=== PATIENT | female | born 1970 | race Caucasian/White ===

== ENCOUNTER 2023-03-21 06:04 | Day surgery (SDC) | payer OTHER ==
[~2023-03-21] VITALS: Ht 154.9 cm; Wt 59.0 kg
[2023-03-21 07:23] LABS: BASOPHILS # (AUTO) 0.1 K/uL (0.00-0.22); BASOPHILS % (AUTO) 1.3 % (0.0-2.0); EOSINOPHILS # (AUTO) 0.1 K/uL (0-0.4); EOSINOPHILS % (AUTO) 2.6 % (0.0-4.0); HEMATOCRIT 37.2 % (36-48); HEMOGLOBIN 12.6 g/dL (12.0-16.0); LYMPHOCYTES # (AUTO) 1.9 K/uL (2.5-16.5); MEAN CORPUSCULAR HEMOGLOBIN 31 pg (27-31); MEAN CORPUSCULAR HGB CONC 34 g/dL (33-37); MEAN CORPUSCULAR VOLUME 91.3 fL (80-94); MONOCYTES # (AUTO) 0.3 K/uL (0.8-1.0); MONOCYTES % (AUTO) 6.4 % (1.7-9.3); NEUTROPHILS # (AUTO) 2.4 K/uL (1.8-7.7); NEUTROPHILS % (AUTO) 50.7 % (42.2-75.2); PLATELET COUNT (AUTO) 204 K/uL (140-450); RED BLOOD CELL COUNT(AUTO) 4.08 MIL/uL (4.20-5.40); RED CELL DISTRIBUTION WIDTH 13.7 % (11.6-13.7); WHITE BLOOD COUNT (AUTO) 4.8 K/uL (4.8-10.8)
[2023-03-21 07:40] LABS: ALBUMIN 3.4 g/dL (3.4-5.0); ANION GAP 10.3 (8-16); CALCIUM 8.6 mg/dL (8.5-10.1); CREATININE 0.8 mg/dL (0.6-1.3); POTASSIUM 4.3 mmol/L (3.5-5.1); TOTAL BILIRUBIN 0.4 mg/dL (0.0-1.0); TOTAL PROTEIN, SERUM 6.3 g/dL (6.4-8.2)
[2023-03-21] MEDS ORDERED: SEVOFLURANE 250 ML BTL INH ONE (07:48)
[2023-03-21] MEDS ORDERED: fentaNYL citrate 0.05 MG/ML VIAL ONE (08:02)
[2023-03-21] MEDS ORDERED: KETOROLAC 30 MG/ML VIAL ONE (08:20)
[2023-03-21] MEDS ORDERED: ONDANSETRON 4 MG/2 ML VIAL ONE (08:20)
[2023-03-21] MEDS ORDERED: ATROPINE 0.4 MG/ML VIAL ONE (08:20)
[2023-03-21] MEDS ORDERED: PROPOFOL 200 MG/20 ML VIAL IV ONE (08:20)
[2023-03-21] MEDS ORDERED: METOCLOPRAMIDE 10 MG/2 ML INJ VIAL ONE (08:20)
[2023-03-21] MEDS ORDERED: KETOROLAC 30 MG/ML VIAL IVP PRN (09:10)
[2023-03-21] MEDS ORDERED: ONDANSETRON 4 MG/2 ML VIAL IVP PRN (09:10)
[2023-03-21] MEDS ORDERED: diphenhydrAMINE 50 MG/ML VIAL IVP PRN (09:10)
[2023-03-21] MEDS ORDERED: oxyCODONE/APAP 5/325 MG 1 TAB TAB PO PRN (09:10)
[2023-03-21] MEDS ORDERED: hydrALAZINE 20 MG/ML VIAL IVP PRN (09:17)
[2023-03-21] MEDS ORDERED: HYDROmorphone 1 MG/ML AMP IVP PRN (09:20)
[2023-03-21] MEDS ORDERED: LACTATED RINGERS 1,000 ML IV SCH (09:20)
[2023-03-21] MEDS ORDERED: LABETALOL 20 MG/4 ML VIAL IVP PRN (09:20)
== END 2023-03-21 13:21 | disposition home or self-care (01) ==
LOC: MDS 06:04 → MMU 06:15 → MDS 13:21
PROVIDERS: ATTEND Obstetrics & Gynecology
DX: N95.0 Postmenopausal bleeding (principal); R93.89 Abnormal findings on diagnostic imaging of other specified body structures; E03.9 Hypothyroidism, unspecified; Z79.899 Other long term (current) drug therapy
CPT/HCPCS: 36415; 58558; 80053; 85025; 86886; 86900; 86901; J0461; J1885; J2405; J2704; J2765; J3010; 88305